=== PATIENT | female | born 1940 | race Caucasian/White ===

== ENCOUNTER 2021-07-13 16:30 | Inpatient (IN) ==
[2021-07-13] MEDS ORDERED: NS 0.9% 1000 ml BAG 1,000 ML IV ONE ×2 (17:53→19:52)
[2021-07-13] MEDS ORDERED: Ondansetron 4 mg VIAL 2 MG/ML 2 ml VIAL IV ONE (17:54)
[2021-07-13] MEDS ORDERED: Morphine 4 MG/ML VIAL (1 ml) IV ONE (17:54)
[2021-07-13 18:03] LABS: Hematocrit 40 % (35-47); Hemoglobin 13.1 g/dL (12.0-16.0); Mean Corpuscular HGB Conc 33 g/dL (31-36); Mean Corpuscular Hemoglobin 32 pg (27-31); Mean Corpuscular Volume 96 fL (80-97); Mean Platelet Volume 9.2 fL (7.4-10.4); Platelet Count 172 10^3/uL (150-450); Red Blood Count 4.14 10^6 /uL (3.70-4.87); Red Cell Distribution Width 13 % (10-15); White Blood Count 15.4 10^3/uL (3.5-10.8)
[2021-07-13 18:19] LABS: ABS Lymphocytes 1.3 10^3/ul (1.0-4.8); ABS Monocytes 1.6 10^3/ul (0-0.8); ABS Neutrophils 12.4 10^3/ul (1.5-7.7); Eosinophil % 0.1 %; Lymphocyte % 8.6 %; Nucleated Red Blood Cells % 0.1
[2021-07-13 18:24] LABS: High Sens Troponin Baseline 648 pg/mL (<15)
[2021-07-13 18:25] LABS: ALT 45 U/L (7-52); Albumin 3.5 g/dL (3.2-5.2); Albumin/Globulin Ratio 1.2 (1-3); Alkaline Phosphatase 38 U/L (35-149); Blood Urea Nitrogen 48 mg/dL (6-24); CO2 Carbon Dioxide 25 mmol/L (22-32); Calcium 9.4 mg/dL (8.6-10.3); Chloride 102 mmol/L (101-111); Glucose 97 mg/dL (70-100); Lipase < 10 U/L (11.0-82.0); Sodium 136 mmol/L (135-145); Total Protein 6.5 g/dL (6.4-8.9); eGFR CKD-EPI 36.4 (>60)
[2021-07-13 18:48] LABS: Anion Gap 9 mmol/L (2-11)
[2021-07-13 19:01] LABS: Creatine Kinase 3222 U/L (10-223)
[2021-07-13 20:22] LABS: High Sensitivity Troponin 1 Hr 654 pg/mL (<15)
[2021-07-13 20:31] LABS: Magnesium 2.6 mg/dL (1.9-2.7); Potassium Redraw 3.7 mmol/L (3.5-5.0)
[2021-07-13] MEDS ORDERED: NS 0.9% 1000 ml BAG 1,000 ML IV SCH (22:15)
[2021-07-13] MEDS ORDERED: Ondansetron 4 mg VIAL 2 MG/ML 2 ml VIAL IV PRN (22:24)
[2021-07-13] MEDS ORDERED: cefTRIAXone 1 gm/50 mL D5W 1 GM/50 ML BAG IV ONE (22:30)
[2021-07-14 06:48] LABS: ABS Lymphocytes 1.4 10^3/ul (1.0-4.8); ABS Monocytes 0.9 10^3/ul (0-0.8); Eosinophil % 0.4 %; Hematocrit 35 % (35-47); Hemoglobin 11.7 g/dL (12.0-16.0); Lymphocyte % 15.3 %; Mean Corpuscular HGB Conc 34 g/dL (31-36); Mean Corpuscular Hemoglobin 33 pg (27-31); Mean Corpuscular Volume 97 fL (80-97); Mean Platelet Volume 8.4 fL (7.4-10.4); Platelet Count 113 10^3/uL (150-450); Red Blood Count 3.58 10^6 /uL (3.70-4.87); Red Cell Distribution Width 13 % (10-15); White Blood Count 9.4 10^3/uL (3.5-10.8)
[2021-07-14 06:49] LABS: Urine Appearance Turbid; Urine Bilirubin Negative (Negative); Urine Blood 2+ (Negative); Urine Color Amber; Urine Glucose 1+(50 mg/dL) (Negative); Urine Ketones Negative (Negative); Urine Nitrite Negative (Negative); Urine Protein 2+(100 mg/dL) (Negative); Urine Specific Gravity 1.027 (1.002-1.030); Urine Urobilinogen Negative (Negative)
[2021-07-14 07:51] LABS: Calcium 8.5 mg/dL (8.6-10.3); Magnesium 2.4 mg/dL (1.9-2.7); Potassium 3.9 mmol/L (3.5-5.0); eGFR CKD-EPI 53.4 (>60)
[2021-07-14 07:54] LABS: Urine Amorphous Crystals Present (Absent); Urine Bacteria 1+ (Absent); Urine Red Blood Cell 2+(6-10/hpf) (Absent); Urine Squamous Epithelial Cell Present (Absent); Urine White Blood Cell 3+(>20/hpf) (Absent)
[2021-07-14] MEDS ORDERED: Lisinopril/HCTZ 10/12.5 TA(NF) PO SCH (09:00)
[2021-07-14] MEDS: Lactated Ringers 1000 ml BAG 1,000 ML IV SCH ×2 (11:30→20:22)
[2021-07-14 14:26] LABS: C Reactive Protein 84.99 mg/L (<8.01)
[2021-07-14] MEDS: cefTRIAXone 1 gm/50 mL D5W 1 GM/50 ML BAG IV SCH (20:38)
[2021-07-15 05:44] LABS: ABS Eosinophils 0.2 10^3/ul (0-0.6); ABS Lymphocytes 1.3 10^3/ul (1.0-4.8); ABS Monocytes 0.9 10^3/ul (0-0.8); ABS Neutrophils 5.1 10^3/ul (1.5-7.7); Eosinophil % 2.5 %; Hematocrit 35 % (35-47); Hemoglobin 11.9 g/dL (12.0-16.0); Lymphocyte % 17.6 %; Mean Corpuscular HGB Conc 34 g/dL (31-36); Mean Corpuscular Hemoglobin 32 pg (27-31); Mean Corpuscular Volume 94 fL (80-97); Mean Platelet Volume 8.1 fL (7.4-10.4); Nucleated Red Blood Cells % 0.1; Platelet Count 172 10^3/uL (150-450); Red Blood Count 3.73 10^6 /uL (3.70-4.87); Red Cell Distribution Width 13 % (10-15); White Blood Count 7.6 10^3/uL (3.5-10.8)
[2021-07-15 06:32] LABS: Calcium 8.7 mg/dL (8.6-10.3); Potassium 3.9 mmol/L (3.5-5.0); eGFR CKD-EPI 73.8 (>60)
[2021-07-15] MEDS: Polyethylene Glycol 3350 17 GM PACKET PO SCH (10:01)
[2021-07-15] MEDS: Enoxaparin 40 MG/0.4 ML SYR SUBCUT SCH (14:43)
[2021-07-15] MEDS: cefTRIAXone 1 gm/50 mL D5W 1 GM/50 ML BAG IV SCH (20:16)
[2021-07-15] MEDS: Senna TAB 8.6 mg TAB PO SCH (20:16)
[2021-07-16] MEDS: Polyethylene Glycol 3350 17 GM PACKET PO SCH (08:27)
[2021-07-16 08:48] LABS: TSH Ultra Thyroid Stim Horm 2.5 mcIU/mL (0.34-5.60)
[2021-07-16 08:59] LABS: Folate 10.77 ng/mL (5.90-24.80)
[2021-07-16] MEDS: Enoxaparin 40 MG/0.4 ML SYR SUBCUT SCH (14:14)
[2021-07-16] MEDS: cefTRIAXone 1 gm/50 mL D5W 1 GM/50 ML BAG IV SCH (20:52)
[2021-07-16] MEDS: Senna TAB 8.6 mg TAB PO SCH (20:54)
[2021-07-17] MEDS: Polyethylene Glycol 3350 17 GM PACKET PO SCH (10:10)
[2021-07-17] MEDS: Enoxaparin 40 MG/0.4 ML SYR SUBCUT SCH (13:19)
[2021-07-17] MEDS: cefTRIAXone 1 gm/50 mL D5W 1 GM/50 ML BAG IV SCH (20:37)
[2021-07-18] MEDS: Enoxaparin 40 MG/0.4 ML SYR SUBCUT SCH (14:17)
[2021-07-18] MEDS: cefTRIAXone 1 gm/50 mL D5W 1 GM/50 ML BAG IV SCH (20:18)
[2021-07-19 05:24] LABS: ABS Basophils 0.1 10^3/ul (0-0.2); ABS Eosinophils 0.5 10^3/ul (0-0.6); ABS Lymphocytes 2.5 10^3/ul (1.0-4.8); ABS Neutrophils 6.7 10^3/ul (1.5-7.7); Eosinophil % 4.4 %; Hematocrit 36 % (35-47); Lymphocyte % 22.9 %; Mean Corpuscular HGB Conc 33 g/dL (31-36); Mean Corpuscular Hemoglobin 31 pg (27-31); Mean Corpuscular Volume 94 fL (80-97); Mean Platelet Volume 8.1 fL (7.4-10.4); Platelet Count 250 10^3/uL (150-450); Red Blood Count 3.83 10^6 /uL (3.70-4.87); Red Cell Distribution Width 12 % (10-15); White Blood Count 10.8 10^3/uL (3.5-10.8)
[2021-07-19 05:44] LABS: Calcium 9.8 mg/dL (8.6-10.3); Magnesium 1.6 mg/dL (1.9-2.7); eGFR CKD-EPI 66.8 (>60)
[2021-07-19] MEDS ORDERED: Magnesium Sulfate 2 gm BAG 2 GM/50 ML BAG IVPB ONE (08:49)
[2021-07-19 12:35] VITALS: BP 133/75
[2021-07-19] MEDS: Enoxaparin 40 MG/0.4 ML SYR SUBCUT SCH (12:43)
== END 2021-07-19 15:48 | disposition home health service (06) | DRG 558 ==
LOC: EDHOLD 16:30 → ED 16:30 → SUATTDRO 07-14 00:04 → EDHOLD 07-14 07:49 → MEDTELE 07-14 09:00 → SUATTDRO 07-16 15:16
PROVIDERS: ADMIT Internal Medicine; ATTEND Student in an Organized Health Care Education/Training Program